=== PATIENT | male | born 2000 | race Caucasian/White ===

== ENCOUNTER 2018-08-27 11:20 | Inpatient (IN) | payer MEDICAID ==
[~2018-08-27] VITALS: Ht 170.2 cm; Wt 49.9 kg
[2018-08-27] VITALS (10 sets, daily range): BP systolic 115–151
[2018-08-27] MEDS ORDERED: NACL 0.9% 1,000 ML IV ONE ×2 (11:45→12:30)
[2018-08-27 12:10] LABS: BASOPHILS # (AUTO) 0.1 K/uL (0.0-0.2); BASOPHILS % (AUTO) 1.3 % (0.0-2.0); HEMATOCRIT 51.3 % (36-54); HEMOGLOBIN 16.3 g/dL (14.0-18.0); LYMPHOCYTES # (AUTO) 1.5 K/uL (1.0-5.5); LYMPHOCYTES % (AUTO) 34.8 % (20.5-51.5); MEAN CORPUSCULAR HEMOGLOBIN 24 pg (27-31); MEAN CORPUSCULAR HGB CONC 32 % (32-36); MEAN CORPUSCULAR VOLUME 76 fL (79.0-98.0); MONOCYTES # (AUTO) 0.2 K/uL (0.0-1.0); MONOCYTES % (AUTO) 5.4 % (1.7-9.3); NEUTROPHILS # (AUTO) 2.6 K/uL (1.8-7.7); NEUTROPHILS % (AUTO) 57.5 % (40.0-70.0); PLATELET COUNT (AUTO) 202 K/uL (130-430); RED BLOOD CELL COUNT(AUTO) 6.76 MIL/uL (4.2-6.2); RED CELL DISTRIBUTION WIDTH 13.7 % (9.0-15.0); WHITE BLOOD COUNT (AUTO) 4.4 K/uL (4.5-11.0)
[2018-08-27 12:21] LABS: INR 0.9 (0.80-1.20); PROTHROMBIN TIME 8.9 SECS (9.5-12.5)
[2018-08-27] MEDS ORDERED: INSU100V9 SQ ×2 (12:27→12:47)
[2018-08-27 12:33] LABS: ANION GAP 24 (5-15); CHLORIDE 93 mmol/L (98-107); POTASSIUM 4.5 mmol/L (3.5-5.1); SODIUM SERUM 131 mmol/L (136-145)
[2018-08-27 12:36] LABS: GLUCOSE 477 mg/dL (70-99); UREA NITROGEN, BLOOD 16 mg/dL (8-21)
[2018-08-27 12:37] LABS: ALANINE AMINOTRANSFERASE 23 U/L (12-78); ALBUMIN 4.4 g/dL (3.4-4.8); ASPARTATE AMINOTRANSFERASE 10 U/L (10-37); CREATININE 1.27 mg/dL (0.55-1.30); GFR AFRICAN AMERICAN 93 mL/min (>90); TOTAL BILIRUBIN 0.6 mg/dL (0.0-1.0)
[2018-08-27 12:41] LABS: ACETONE, SERUM SMALL (NEGATIVE)
[2018-08-27] MEDS ORDERED: INSULIN REGULAR, HUMAN 10 UNITS/0.1 ML INJ IVP ONE (13:15)
[2018-08-27] MEDS ORDERED: INSULIN REGULAR, HUMAN 100 UNITS in NS 99 ML IV PRN ×2 (14:00)
[2018-08-27] MEDS ORDERED: ACETAMINOPHEN 325 MG TABLET PO PRN (15:00)
[2018-08-27] MEDS: FAMOTIDINE 20 MG TABLET PO SCH (15:47)
[2018-08-27] MEDS ORDERED: FAMOTIDINE 20 MG TABLET ONE (15:53)
[2018-08-27] MEDS ORDERED: POTASSIUM CHLORIDE 10 MEQ in NACL 0.9% 1,000 ML IV SCH (16:38)
[2018-08-27] MEDS ORDERED: POTASSIUM CHLORIDE 20 MEQ in NACL 0.9% 1,000 ML IV SCH (17:00)
[2018-08-27] MEDS ORDERED: INSULIN REGULAR, HUMAN 100 UNITS in NS 99 ML IV SCH ×2 (17:00)
[2018-08-27] MEDS: POTASSIUM CHLORIDE 20 MEQ in 0.45% NACL 1,000 ML IV SCH (18:09)
[2018-08-27 18:41] LABS: ANION GAP 12 (5-15); CALCIUM 7.7 mg/dL (8.4-11.0); CHLORIDE 105 mmol/L (98-107); GFR AFRICAN AMERICAN 138 mL/min (>90); GLUCOSE 181 mg/dL (70-99); POTASSIUM 3.8 mmol/L (3.5-5.1); SODIUM SERUM 137 mmol/L (136-145); UREA NITROGEN, BLOOD 10 mg/dL (8-21)
[2018-08-27 18:50] LABS: PHOSPHORUS 2.3 mg/dL (2.7-4.5)
[2018-08-27 19:23] LABS: BILIRUBIN,URINE NEGATIVE (NEGATIVE); BLOOD, URINE NEGATIVE (NEGATIVE); CLARITY/URINE CLEAR (CLEAR); COLOR,URINE YELLOW (YELLOW); GLUCOSE,URINE 3+ (NEGATIVE); KETONES,URINE 3+ (NEGATIVE); LEUKOCYTE ESTERASE ,URINE NEGATIVE (NEGATIVE); NITRITE, URINE NEGATIVE (NEGATIVE); PROTEIN URINE NEGATIVE (NEGATIVE); UROBILINOGEN,URINE 0.2 (0.2-1.0)
[2018-08-27] MEDS ORDERED: INSULIN ASPART 100 UNITS/ML, 10 ML VIAL (NovoLOG) SUBCUT PRN (20:15)
[2018-08-27 20:19] LABS: RBC,URINE 0-3 /HPF (0-3); WBC,URINE 0-3 /HPF (0-3)
[2018-08-27 20:20] LABS: BACTERIA,URINE FEW /HPF (None Seen); MUCUS,URINE None Seen /LPF (None Seen); YEAST,URINE None Seen /HPF (None Seen)
[2018-08-28] VITALS (15 sets, daily range): BP systolic 110–146
[2018-08-28] MEDS: POTASSIUM CHLORIDE 20 MEQ in 0.45% NACL 1,000 ML IV SCH ×3 (04:12→16:00)
[2018-08-28 05:25] LABS: BASOPHILS % (AUTO) 0.6 % (0.0-2.0); EOSINOPHILS # (AUTO) 0.1 K/uL (0.0-0.4); EOSINOPHILS % (AUTO) 2.7 % (0.0-4.0); HEMATOCRIT 42.5 % (36-54); LYMPHOCYTES # (AUTO) 2.7 K/uL (1.0-5.5); LYMPHOCYTES % (AUTO) 54.5 % (20.5-51.5); MEAN CORPUSCULAR HEMOGLOBIN 25 pg (27-31); MEAN CORPUSCULAR HGB CONC 33 % (32-36); MEAN CORPUSCULAR VOLUME 75 fL (79.0-98.0); MONOCYTES # (AUTO) 0.3 K/uL (0.0-1.0); MONOCYTES % (AUTO) 6.8 % (1.7-9.3); NEUTROPHILS # (AUTO) 1.7 K/uL (1.8-7.7); NEUTROPHILS % (AUTO) 35.4 % (40.0-70.0); PLATELET COUNT (AUTO) 185 K/uL (130-430); RED BLOOD CELL COUNT(AUTO) 5.64 MIL/uL (4.2-6.2); RED CELL DISTRIBUTION WIDTH 13.4 % (9.0-15.0); WHITE BLOOD COUNT (AUTO) 4.8 K/uL (4.5-11.0)
[2018-08-28 05:48] LABS: CREATININE 0.79 mg/dL (0.55-1.30); POTASSIUM 3.9 mmol/L (3.5-5.1)
[2018-08-28 06:04] LABS: ALBUMIN 3.1 g/dL (3.4-4.8); PHOSPHORUS 2.7 mg/dL (2.7-4.5); THYROID STIMULATING HORMONE 1.49 uIu/mL (0.36-3.74); TOTAL BILIRUBIN 0.6 mg/dL (0.0-1.0)
[2018-08-28] MEDS: FAMOTIDINE 20 MG TABLET PO SCH (09:53)
[2018-08-28] MEDS ORDERED: INSULIN ASPART 100 UNITS/ML, 10 ML VIAL SUBCUT SCH (11:30)
== END 2018-08-28 17:15 | disposition home or self-care (01) | DRG 420 ==
LOC: SED 11:20 → SMU 13:46 → SIC 13:58 → SMU 08-28 10:49
PROVIDERS: ADMIT Internal Medicine; ATTEND Internal Medicine
DX: E11.10 Type 2 diabetes mellitus with ketoacidosis without coma (principal); F17.210 Nicotine dependence, cigarettes, uncomplicated; Z79.4 Long term (current) use of insulin; Z83.3 Family history of diabetes mellitus; Z91.14 Patient's other noncompliance with medication regimen
CPT/HCPCS: 36415; 36600; 71045; 80048; 80053; 81000-TC; 82009-TC; 82550-TC; 82803-TC; 82962; 83036; 83735-TC; 83880; 84100-TC; 84443-TC; 84484; 85025; 85610-TC; 85730-TC; 87081; 90656; 93005; 96361; 96374; 99285; J1815; J3480; J7030

== ENCOUNTER 2023-04-02 23:04 | Inpatient (IN) | payer MEDICAID, OTHER ==
[~2023-04-02] VITALS: Ht 170.2 cm; Wt 52.2 kg
[~2023-04-02 23:04] MED LIST: INSU100V9 SQ
[2023-04-02 23:07] VITALS: BP_SYST 129
[2023-04-02] MEDS ORDERED: NACL 0.9% 1,000 ML IV ONE (23:45)
[2023-04-02] MEDS ORDERED: ONDANSETRON HCL 4 MG/2 ML VIAL IVP ONE (23:45)
[2023-04-02] MEDS ORDERED: FAMOTIDINE PF 20 MG/2 ML VIAL IVP ONE (23:45)
[2023-04-03] VITALS (14 sets, daily range): BP systolic 97–148
[2023-04-03 00:15] LABS: BASOPHILS % (AUTO) 0.4 % (0.0-2.0); EOSINOPHILS # (AUTO) 0.1 K/uL (0.0-0.4); EOSINOPHILS % (AUTO) 0.9 % (0.0-4.0); HEMATOCRIT 51.4 % (36-54); HEMOGLOBIN 16.3 g/dL (14.0-18.0); LYMPHOCYTES # (AUTO) 2.3 K/uL (1.0-5.5); LYMPHOCYTES % (AUTO) 23.2 % (20.5-51.5); MEAN CORPUSCULAR HEMOGLOBIN 25 pg (27-31); MEAN CORPUSCULAR HGB CONC 32 % (32-36); MEAN CORPUSCULAR VOLUME 79 fL (79.0-98.0); MONOCYTES # (AUTO) 0.6 K/uL (0.0-1.0); NEUTROPHILS # (AUTO) 6.9 K/uL (1.8-7.7); NEUTROPHILS % (AUTO) 69.5 % (40.0-70.0); PLATELET COUNT (AUTO) 291 K/uL (130-430); RED BLOOD CELL COUNT(AUTO) 6.47 MIL/uL (4.2-6.2); RED CELL DISTRIBUTION WIDTH 15.9 % (9.0-15.0); WHITE BLOOD COUNT (AUTO) 9.9 K/uL (4.8-10.8)
[2023-04-03 00:27] LABS: ANION GAP 26 (5-15); CALCIUM 7.2 mg/dL (8.4-11.0); CHLORIDE 100 mmol/L (98-107); CREATININE 1.48 mg/dL (0.55-1.30); GFR AFRICAN AMERICAN 75 mL/min (>90); GLUCOSE 180 mg/dL (70-99); UREA NITROGEN, BLOOD 12 mg/dL (8-21)
[2023-04-03 00:33] LABS: ALANINE AMINOTRANSFERASE 25 U/L (12-78); ALBUMIN 4.2 g/dL (3.4-4.8); ASPARTATE AMINOTRANSFERASE 14 U/L (10-37); LIPASE 82 U/L (73-393); TOTAL BILIRUBIN 0.5 mg/dL (0.0-1.0)
[2023-04-03] MEDS ORDERED: NACL 0.9% 1,000 ML IV ONE (00:45)
[2023-04-03] MEDS ORDERED: INSULIN REGULAR, HUMAN 100 UNITS in NS 99 ML IV ONE ×2 (01:15)
[2023-04-03] MEDS ORDERED: INSULIN REGULAR, HUMAN 10 UNITS/0.1 ML, 3 ML VIAL ONE (01:24)
[2023-04-03] MEDS ORDERED: D5NS 1,000 ML IV ONE (02:00)
[2023-04-03] MEDS ORDERED: DEXTROSE 50% JECT 50 ML DISP.SYRIN IVP PRN (02:30)
[2023-04-03] MEDS ORDERED: INSULIN REGULAR, HUMAN 100 UNITS in NS 99 ML IV PRN ×2 (02:30)
[2023-04-03 02:38] LABS: BILIRUBIN,URINE NEGATIVE (NEGATIVE); GLUCOSE,URINE 3+ (NEGATIVE); KETONES,URINE 3+ (NEGATIVE); LEUKOCYTE ESTERASE ,URINE NEGATIVE (NEGATIVE); NITRITE, URINE NEGATIVE (NEGATIVE); PROTEIN URINE 1+ (NEGATIVE); UROBILINOGEN,URINE 0.2 (0.2-1.0)
[2023-04-03 02:44] LABS: BLOOD, URINE TRACE (NEGATIVE); CLARITY/URINE HAZY (CLEAR); COLOR,URINE YELLOW (YELLOW)
[2023-04-03 02:51] LABS: BACTERIA,URINE None Seen /HPF (None Seen); RBC,URINE 0-3 /HPF (0-3); WBC,URINE 0-3 /HPF (0-3)
[2023-04-03 06:02] LABS: ALANINE AMINOTRANSFERASE 20 U/L (12-78); ALBUMIN 3.4 g/dL (3.4-4.8); ANION GAP 24 (5-15); ASPARTATE AMINOTRANSFERASE 12 U/L (10-37); CHLORIDE 107 mmol/L (98-107); CREATININE 1.15 mg/dL (0.55-1.30); GFR AFRICAN AMERICAN 100 mL/min (>90); GLUCOSE 150 mg/dL (70-99); TOTAL BILIRUBIN 0.4 mg/dL (0.0-1.0); UREA NITROGEN, BLOOD 8 mg/dL (8-21)
[2023-04-03 06:06] LABS: CALCIUM 6.4 mg/dL (8.4-11.0)
[2023-04-03] MEDS ORDERED: D5NS 500 ML IV ONE (08:00)
[2023-04-03 08:31] LABS: BASOPHILS % (AUTO) 0.2 % (0.0-2.0); EOSINOPHILS % (AUTO) 0.1 % (0.0-4.0); HEMOGLOBIN 15.1 g/dL (14.0-18.0); LYMPHOCYTES # (AUTO) 1.6 K/uL (1.0-5.5); LYMPHOCYTES % (AUTO) 13.1 % (20.5-51.5); MEAN CORPUSCULAR HEMOGLOBIN 25 pg (27-31); MEAN CORPUSCULAR HGB CONC 31 % (32-36); MEAN CORPUSCULAR VOLUME 80 fL (79.0-98.0); MONOCYTES # (AUTO) 0.6 K/uL (0.0-1.0); MONOCYTES % (AUTO) 4.9 % (1.7-9.3); NEUTROPHILS # (AUTO) 9.9 K/uL (1.8-7.7); NEUTROPHILS % (AUTO) 81.7 % (40.0-70.0); PLATELET COUNT (AUTO) 251 K/uL (130-430); RED BLOOD CELL COUNT(AUTO) 6.12 MIL/uL (4.2-6.2); RED CELL DISTRIBUTION WIDTH 16.2 % (9.0-15.0); WHITE BLOOD COUNT (AUTO) 12.1 K/uL (4.8-10.8)
[2023-04-03 09:47] LABS: ALBUMIN 3.4 g/dL (3.4-4.8); CREATININE 1.2 mg/dL (0.55-1.30); PHOSPHORUS 1.7 mg/dL (2.7-4.5); TOTAL BILIRUBIN 0.5 mg/dL (0.0-1.0)
[2023-04-03 09:50] LABS: CALCIUM 6.6 mg/dL (8.4-11.0)
[2023-04-03] MEDS ORDERED: MUPIROCIN 2% TOPICAL OINTMENT 22 GM NS PRN (10:00)
[2023-04-03] MEDS ORDERED: MAGNESIUM SULFATE 50 ML IV PRN (10:00)
[2023-04-03] MEDS ORDERED: LORazepam 2 MG/ML VIAL IVP PRN (10:00)
[2023-04-03] MEDS ORDERED: POTASSIUM CHLORIDE 20 MEQ TAB.PRT.SR PO PRN (10:00)
[2023-04-03] MEDS ORDERED: ZOLPIDEM TARTRATE 5 MG TABLET PO PRN (10:00)
[2023-04-03] MEDS ORDERED: DOCUSATE SODIUM 100 MG CAPSULE PO PRN (10:00)
[2023-04-03] MEDS ORDERED: ONDANSETRON HCL 4 MG/2 ML VIAL IVP PRN (10:00)
[2023-04-03] MEDS ORDERED: K PHOS 30 MM in NS 250 ML IV ONE (10:00)
[2023-04-03] MEDS ORDERED: ACETAMINOPHEN 325 MG TABLET PO PRN ×2 (10:00→10:15)
[2023-04-03] MEDS ORDERED: SODIUM BICARBONATE 8.4% JECT 50 MEQ/50 ML SYRINGE IVP ONE (10:45)
[2023-04-03] MEDS: D5NS 1,000 ML IV SCH ×2 (11:06→17:29)
[2023-04-03] MEDS ORDERED: D5NS 1,000 ML IV SCH (11:15)
[2023-04-03] MEDS ORDERED: CALCIUM GLUCONATE 2 GM in NS 100 ML IV ONE (13:00)
[2023-04-03 13:59] LABS: CALCIUM 7.5 mg/dL (8.4-11.0); CREATININE 1.08 mg/dL (0.55-1.30); PHOSPHORUS 2.6 mg/dL (2.7-4.5)
[2023-04-03 18:30] LABS: BARBITURATE, URINE NEGATIVE (NEG <=200); BENZODIAZEPINE, URINE NEGATIVE (NEG <=150); CANNABINOID, URINE NEGATIVE (NEG <=50); COCAINE, URINE NEGATIVE (NEG <=150); METHAMPHETAMINES SCREEN,URINE NEGATIVE (NEG <=500); PHENCYCLIDINE SCREEN,URINE NEGATIVE (NEG <=25); URINE AMPHETAMINE NEGATIVE (NEG <=500); URINE METHADONE NEGATIVE (NEG <=200)
[2023-04-03 18:31] LABS: OPIATE, URINE NEGATIVE (NEG <=100); UR TRICYCLIC ANTIDEPRESSANTS NEGATIVE (NEG <=300); URINE OXYCODONE SCREEN NEGATIVE (NEG <=100); URINE PROPOXYPHENE SCREEN NEGATIVE (NEG <=300)
[2023-04-03] MEDS: NACL 0.9% 1,000 ML IV SCH (18:57)
[2023-04-03 20:30] LABS: CREATININE 1.46 mg/dL (0.55-1.30); PHOSPHORUS 3.6 mg/dL (2.7-4.5)
[2023-04-03 20:34] LABS: CALCIUM 6.6 mg/dL (8.4-11.0)
[2023-04-03 23:31] LABS: CREATININE 1.37 mg/dL (0.55-1.30)
[2023-04-03 23:38] LABS: CALCIUM 6.9 mg/dL (8.4-11.0)
[2023-04-04] VITALS (23 sets, daily range): BP systolic 89–139
[2023-04-04] MEDS: NACL 0.9% 1,000 ML IV SCH ×2 (04:52→15:13)
[2023-04-04 05:04] LABS: BASOPHILS % (AUTO) 0.6 % (0.0-2.0); EOSINOPHILS # (AUTO) 0.2 K/uL (0.0-0.4); EOSINOPHILS % (AUTO) 3.9 % (0.0-4.0); HEMATOCRIT 41.6 % (36-54); HEMOGLOBIN 13.6 g/dL (14.0-18.0); LYMPHOCYTES # (AUTO) 2.2 K/uL (1.0-5.5); LYMPHOCYTES % (AUTO) 48.5 % (20.5-51.5); MEAN CORPUSCULAR HEMOGLOBIN 25 pg (27-31); MEAN CORPUSCULAR HGB CONC 33 % (32-36); MEAN CORPUSCULAR VOLUME 78 fL (79.0-98.0); MONOCYTES # (AUTO) 0.5 K/uL (0.0-1.0); MONOCYTES % (AUTO) 10.4 % (1.7-9.3); NEUTROPHILS # (AUTO) 1.6 K/uL (1.8-7.7); NEUTROPHILS % (AUTO) 36.6 % (40.0-70.0); PLATELET COUNT (AUTO) 193 K/uL (130-430); RED BLOOD CELL COUNT(AUTO) 5.37 MIL/uL (4.2-6.2); RED CELL DISTRIBUTION WIDTH 15.8 % (9.0-15.0); WHITE BLOOD COUNT (AUTO) 4.5 K/uL (4.8-10.8)
[2023-04-04 05:44] LABS: CREATININE 1.25 mg/dL (0.55-1.30); PHOSPHORUS 1.5 mg/dL (2.7-4.5); TOTAL BILIRUBIN 0.5 mg/dL (0.0-1.0)
[2023-04-04 05:46] LABS: CALCIUM 6.6 mg/dL (8.4-11.0)
[2023-04-04] MEDS: INSULIN REGULAR, HUMAN 100 UNITS/ML, 3 ML VIAL (humuLIN R) SUBCUT PRN ×2 (06:42→19:07)
[2023-04-04] MEDS ORDERED: INSULIN REGULAR, HUMAN 100 UNITS in NS 99 ML IV PRN ×2 (07:15)
[2023-04-04 09:08] LABS: CALCIUM 7.1 mg/dL (8.4-11.0); CREATININE 1.33 mg/dL (0.55-1.30)
[2023-04-04] MEDS ORDERED: CALCIUM 500 MG/TAB PO ONE (10:00)
[2023-04-04] MEDS ORDERED: SODIUM BICARBONATE 650 MG TABLET PO ONE (14:15)
[2023-04-04 15:43] LABS: CALCIUM 7.8 mg/dL (8.4-11.0); PHOSPHORUS 1.8 mg/dL (2.7-4.5)
[2023-04-04 19:46] LABS: CALCIUM 7.6 mg/dL (8.4-11.0); CREATININE 1.18 mg/dL (0.55-1.30); PHOSPHORUS 2.2 mg/dL (2.7-4.5)
[2023-04-04] MEDS ORDERED: COMMUNICATION ORDER XX PRN (20:30)
[2023-04-04] MEDS ORDERED: INSULIN REGULAR, HUMAN 100 UNITS/ML, 3 ML VIAL (humuLIN R) SUBCUT PRN (20:39)
[2023-04-04] MEDS: SODIUM BICARBONATE 650 MG TABLET PO SCH (21:26)
[2023-04-05] VITALS (15 sets, daily range): BP systolic 101–142
[2023-04-05] MEDS: NACL 0.9% 1,000 ML IV SCH ×2 (00:45→08:53)
[2023-04-05 06:07] LABS: BASOPHILS % (AUTO) 0.7 % (0.0-2.0); EOSINOPHILS # (AUTO) 0.3 K/uL (0.0-0.4); EOSINOPHILS % (AUTO) 5.8 % (0.0-4.0); HEMATOCRIT 42.8 % (36-54); HEMOGLOBIN 14.1 g/dL (14.0-18.0); LYMPHOCYTES # (AUTO) 2.1 K/uL (1.0-5.5); LYMPHOCYTES % (AUTO) 46.3 % (20.5-51.5); MEAN CORPUSCULAR HEMOGLOBIN 25 pg (27-31); MEAN CORPUSCULAR HGB CONC 33 % (32-36); MEAN CORPUSCULAR VOLUME 77 fL (79.0-98.0); MONOCYTES # (AUTO) 0.4 K/uL (0.0-1.0); MONOCYTES % (AUTO) 9.3 % (1.7-9.3); NEUTROPHILS # (AUTO) 1.8 K/uL (1.8-7.7); NEUTROPHILS % (AUTO) 37.9 % (40.0-70.0); PLATELET COUNT (AUTO) 203 K/uL (130-430); RED BLOOD CELL COUNT(AUTO) 5.57 MIL/uL (4.2-6.2); RED CELL DISTRIBUTION WIDTH 15.2 % (9.0-15.0); WHITE BLOOD COUNT (AUTO) 4.6 K/uL (4.8-10.8)
[2023-04-05 06:25] LABS: CALCIUM 7.9 mg/dL (8.4-11.0); CREATININE 0.9 mg/dL (0.55-1.30)
[2023-04-05] MEDS ORDERED: COMMUNICATION ORDER XX ONE (06:45)
[2023-04-05] MEDS ORDERED: INSULIN GLARGINE 100 UNITS/ML, 10 ML VIAL SUBCUT SCH (07:00)
[2023-04-05] MEDS: SODIUM BICARBONATE 650 MG TABLET PO SCH ×2 (08:55→09:00)
[2023-04-05] MEDS ORDERED: CALCIUM 500 MG/TAB PO SCH (09:00)
[2023-04-05] MEDS ORDERED: INSULIN LISPRO SLIDING SCALE 100 UNITS/ML, 3 ML VIAL (humaLOG) SUBCUT PRN (10:30)
[2023-04-05] MEDS ORDERED: GLUCOSE (DEXTROSE) ORAL GEL -Adults PO PRN (10:45)
[2023-04-05] MEDS ORDERED: DEXTROSE 50%-WATER 50 ML DISP.SYRIN IVP PRN (10:45)
[2023-04-05] MEDS ORDERED: D5W 1,000 ML IV PRN (10:45)
[2023-04-05] MEDS ORDERED: INSULIN Lispro 100 UNITS/ML, 3 ML VIAL (humaLOG) SUBCUT SCH (11:30)
[2023-04-05] MEDS: INSULIN Lispro 100 UNITS/ML, 3 ML VIAL (humaLOG) SUBCUT SCH ×2 (11:30→14:35)
== END 2023-04-05 15:00 | disposition left against medical advice (07) | DRG 420 ==
LOC: SED 23:04 → SIC 04-03 02:28
PROVIDERS: ADMIT General Practice; ATTEND General Practice
DX: E10.10 Type 1 diabetes mellitus with ketoacidosis without coma (principal); N17.0 Acute kidney failure with tubular necrosis; E83.51 Hypocalcemia; E83.39 Other disorders of phosphorus metabolism; R65.10 Systemic inflammatory response syndrome (SIRS) of non-infectious origin without acute organ dysfunction; F17.290 Nicotine dependence, other tobacco product, uncomplicated; K21.9 Gastro-esophageal reflux disease without esophagitis; E87.6 Hypokalemia; Z53.29 Procedure and treatment not carried out because of patient's decision for other reasons; Z79.4 Long term (current) use of insulin; Z83.3 Family history of diabetes mellitus
CPT/HCPCS: 36415; 36600; 71045; 80048; 80053; 80307; 81000; 82009; 82306; 82803; 82962; 83037; 83690; 83735; 83970; 84100; 84484; 85025; 87081; 93005; 96361; 96374; 96375; 99291; J0610; J1815; J2405; J3475; J3490; J7050